=== PATIENT | male | born 1940 | race Caucasian/White ===

== ENCOUNTER 2019-06-29 10:01 | Inpatient (IN) | payer MEDICARE, OTHER ==
[2019-06-27 16:47] LABS: BASOPHILS % (AUTO) 0.6 % (0-1); EOSINOPHILS # (AUTO) 0.2 X10'3 (0-0.9); LYMPHOCYTES % (AUTO) 30.3 % (21-51); MEAN CORPUSCULAR HEMOGLOBIN 28.8 PG (27.0-31.0); MEAN CORPUSCULAR HGB CONC 33.6 g/dL (33.0-36.5); MEAN CORPUSCULAR VOLUME 85.9 FL (78-98); MEAN PLATELET VOLUME 8.6 FL (7.4-10.4); MONOCYTES # (AUTO) 0.4 X10'3 (0-0.9); MONOCYTES % (AUTO) 5.6 % (2-12); NEUTROPHILS # (AUTO) 3.9 X10'3 (1.8-7.7); NEUTROPHILS % (AUTO) 60.5 % (42-75); PRE OP HEMATOCRIT 41.5 % (42.0-52.0); PRE OP HEMOGLOBIN 13.9 g/dL (14.0-17.9); PRE OP PLATELET COUNT 182 X10'3 (140-440); RED BLOOD COUNT 4.83 X10'6 (4.70-6.10); RED CELL DISTRIBUTION WIDTH 15.3 % (11.5-14.5)
[2019-06-27 16:59] LABS: PRE OP PROTIME 10.7 SECONDS (9.0-12.0)
[2019-06-27 17:05] LABS: ALBUMIN 3.7 G/DL (3.4-5.0); ALKALINE PHOSPHATASE 75 IU/L (46-116); BLOOD UREA NITROGEN 11 MG/DL (7-18); BUN/CREATININE RATIO 14.1 (5.4-32.0); CALCIUM 9.8 MG/DL (8.5-10.1); CHLORIDE 104 MMOL/L (99-107); CREATININE 0.78 MG/DL (0.60-1.10); PRE OP ALT 25 U/L (30-65); PRE OP ANION GAP 10 (8-16); PRE OP AST 20 U/L (10-37); PRE OP BILIRUB, TOTAL 0.5 MG/DL (0.0-1.0); PRE OP GLUCOSE 105 MG/DL (70-104); PRE OP SODIUM 139 MMOL/L (135-145); TOTAL CARBON DIOXIDE 24.9 MMOL/L (24-32); TOTAL PROTEIN 7.3 G/DL (6.4-8.2); eGFR > 90 ML/MIN
[2019-06-27 17:06] LABS: HEMOGLOBIN A1C 7.2 % (4.5-6.2)
[~2019-06-29] VITALS: Ht 175.3 cm; Wt 110.5 kg
[2019-06-29] VITALS (18 sets, daily range): BP systolic 105–160; BP diastolic 47–79
[~2019-06-29 10:01] MED LIST: APIX5TAB3 PO; CHOL100046 PO; ENZA40CA PO; LOSA50TA64 PO; ROSU20TA31 PO; SITA100T11 PO; cefazolin/dext.iso 2gm/100ml 100 ML IV ONE; famotidine 20mg tablet PO ONE
[2019-06-29] MEDS ORDERED: DILT120C10 PO (10:44)
[2019-06-29] MEDS: ringers solution, lacted 1,000 ML IV SCH (11:01)
[2019-06-29] MEDS ORDERED: phenylephrine inj 20 MG in normal saline 250ml IV soln 250 ML IV PRN (11:36)
[2019-06-29] MEDS ORDERED: nitroPRUSSIDE in NS 100 ML IV PRN (11:36)
[2019-06-29] MEDS ORDERED: LIDOcaine 1% (10mg/ml) 2ml vial ONE ×2 (12:52→13:45)
[2019-06-29] MEDS ORDERED: sugammadex 200mg/2ml injection IV ONE (13:39)
[2019-06-29] MEDS ORDERED: fentaNYL/PF 50MCG/1 ML 2ML syringe ONE (13:41)
[2019-06-29] MEDS ORDERED: midazolam 2 mg/2 ml injection ONE (13:41)
[2019-06-29] MEDS ORDERED: propofol inj 20 ML IV ONE (13:42)
[2019-06-29] MEDS ORDERED: rocuronium 10mg/ml inj IV ONE (13:42)
[2019-06-29] MEDS ORDERED: heparin 10,000 units/1 ML INJ ONE (13:45)
[2019-06-29] MEDS ORDERED: neostigmine methylsulfate 1 MG/ML 10ml vial ONE (14:01)
[2019-06-29] MEDS ORDERED: sevoflurane 250ml liquid IH ONE (14:01)
[2019-06-29] MEDS ORDERED: ondansetron/PF 4mg/2ml inj IV PRN ×2 (14:15→15:00)
[2019-06-29] MEDS ORDERED: ePHEDrine 50MG/ML INJ. ONE (14:25)
[2019-06-29] MEDS ORDERED: heparin 1,000unit/ml 10ml vial 10 ML ONE (14:28)
[2019-06-29] MEDS ORDERED: morphine 4 MG/ML inj SYRINge IV PRN ×2 (15:00)
[2019-06-29] MEDS ORDERED: meperidine/PF 25mg/ml syringe IV PRN ×3 (15:00)
[2019-06-29] MEDS ORDERED: proCHLORperazine 10 MG/2 ml inj IV PRN (15:00)
[2019-06-29] MEDS ORDERED: ringers solution, lacted 1,000 ML IV SCH (15:00)
[2019-06-29] MEDS ORDERED: metoprolol tartrate 1mg/ml inj IV ONE (15:23)
--- NOTE | 2019-06-29 15:48 | NUR ---
Received from OR via ICU BED , accompanied by Anesthesiologist EDWINA and report given by Anesthesiolgist. PATIENT WITH 10L MASK ON WITH 98% SATURATIONS. RIGHT NECK DRESSING IS CDI. PIA PRESENT AND MAINTAINING SUCTION. PATIENT WITH ART LINE IN RIGHT UE AND 18G PIV IN RIGHT AC. PATIENT WITH VSS AT THIS TIME.
--- NOTE | 2019-06-29 16:38 | NUR ---
ALL CRITERIA FOR TRANSFER TO THE FLOOR HAS BEEN ACHIEVED. VSS. BED LOW, CALL LIGHT AND VS. SET IN PLACE. RN PRESENT TO ACCEPT CARE. PATIENT RESTING COMFORTABLY IN BED. BELONGINGS SENT WITH PATIENT. DRESSINGS CDI. RNS PRESENT TO ACCEPT CARE AND ASSIST IN SET UP OF PATIENT. Addendum: 06/29/19 at 1648 by Piero Gilbert RN RN Amended: Links added.
--- NOTE | 2019-06-29 17:03 | NUR ---
Patient in room CICU 2012. I have received report from cage unloader and had the opportunity to ask questions and assume patient care.
--- NOTE | 2019-06-29 17:03 | NUR ---
pt in room 2013, turned and extra blankets and bug hugger removed, dressing placed on bottom.
--- NOTE | 2019-06-29 18:24 | NUR ---
Problems reprioritized. Patient report given, questions answered & plan of care reviewed with [].
--- NOTE | 2019-06-29 18:37 | NUR ---
assumed care from ZION STRICKLAND NO QUESTIONS OR CONCERNS AFTER ASSUMING CARE
[2019-06-29] MEDS: apixaban 5mg tablet PO SCH (20:00)
[2019-06-29] MEDS ORDERED: linagliptin 5mg tablet PO SCH (21:00)
--- NOTE | 2019-06-29 22:19 | NUR ---
PATIENT IN BED COVERS ON EYES OPEN WATCHING TELEVISION RR EVEN UN LABORED PATIENT HAS HAD ASYMPTOMATIC BRADYCARDIA FOR ME THIS SHIFT, NO OBSERVABLE S/S OF ACUTE STRESS AT THIS TIME WILL CONTINUE TO MONITOR
[2019-06-30] VITALS (12 sets, daily range): BP systolic 101–143; BP diastolic 38–67
--- NOTE | 2019-06-30 01:22 | NUR ---
PATIENT IN BED EYES CLOSED RR EVEN UN LABORED NO OBSERVABLE S/S OF ACUTE STRESS AT THIS TIME WILL CONTINUE TO MONITOR
--- NOTE | 2019-06-30 04:05 | NUR ---
PATIENT USED CALL LIGHT FOR HELP WITH THE URINAL AFTER FINISHING URINATING IN URINAL PATIENT ASKED AND RECEIVED NEW WARM BLANKETS AND AT THIS TIME PATIENT IS ON SIDE EYES CLOSED COVERS ON RR EVEN UN LABORED NO OBSERVABLE S/S OF ACUTE STRESS AT THIS TIME WILL CONTINUE TO MONITOR
[2019-06-30 05:11] LABS: BASOPHILS % (AUTO) 0.5 % (0-1); EOSINOPHILS # (AUTO) 0.1 X10'3 (0-0.9); EOSINOPHILS % (AUTO) 1.5 % (0-6); HEMATOCRIT 36.5 % (42.0-52.0); HEMOGLOBIN 12.5 g/dl (14.0-17.9); LYMPHOCYTES # (AUTO) 1.1 X10'3 (1.1-4.8); LYMPHOCYTES % (AUTO) 18.1 % (21-51); MEAN CORPUSCULAR HEMOGLOBIN 29.4 PG (27.0-31.0); MEAN CORPUSCULAR HGB CONC 34.2 g/dL (33.0-36.5); MEAN PLATELET VOLUME 8.4 FL (7.4-10.4); MONOCYTES # (AUTO) 0.4 X10'3 (0-0.9); MONOCYTES % (AUTO) 5.9 % (2-12); NEUTROPHILS # (AUTO) 4.6 X10'3 (1.8-7.7); PLATELET COUNT 141 X10'3 (140-440); RED BLOOD COUNT 4.24 X10'6 (4.70-6.10); RED CELL DISTRIBUTION WIDTH 14.9 % (11.5-14.5); WHITE BLOOD COUNT 6.2 X10'3 (4.5-11.0)
[2019-06-30 05:17] LABS: ALANINE AMINOTRANSFERASE 21 U/L (12-78); ALBUMIN 2.9 G/DL (3.4-5.0); ALBUMIN/GLOBULIN RATIO 0.9 (1.1-1.5); ALKALINE PHOSPHATASE 55 IU/L (46-116); ANION GAP 8 (8-16); ASPARTATE AMINO TRANSFERASE 17 U/L (10-37); BILIRUBIN,TOTAL 0.5 MG/DL (0.1-1.0); BLOOD UREA NITROGEN 9 MG/DL (7-18); BUN/CREATININE RATIO 11.8 (5.4-32.0); CALCIUM 8.8 MG/DL (8.5-10.1); CHLORIDE 105 MMOL/L (99-107); CREATININE 0.76 MG/DL (0.60-1.10); GLUCOSE 135 MG/DL (70-104); MAGNESIUM 1.8 MG/DL (1.5-2.4); PHOSPHORUS 3.5 MG/DL (2.3-4.5); POTASSIUM 3.8 MMOL/L (3.5-5.1); SODIUM 141 MMOL/L (135-145); TOTAL CARBON DIOXIDE 27.9 MMOL/L (24-32); eGFR > 90 ML/MIN
--- NOTE | 2019-06-30 06:10 | NUR ---
SBAR TO JOVAN STRICKLAND NO QUESTIONS OR CONCERNS AFTER ASSUMING CARE
--- NOTE | 2019-06-30 06:17 | NUR ---
Patient in room CICU 2013. I have received report from EM Gutiérrez and had the opportunity to ask questions and assume patient care.
[2019-06-30] MEDS ORDERED: vitamin D (cholecalciferol) 1,000 unit tablet PO SCH (08:00)
[2019-06-30] MEDS ORDERED: atorvastatin 20mg tablet PO SCH (08:00)
[2019-06-30] MEDS ORDERED: ENZALUTAMIDE 120 MG PO SCH ×2 (08:00→15:30)
[2019-06-30] MEDS ORDERED: diltiazem CD 120mg capsule (once-daily) PO SCH ×2 (08:00→18:00)
[2019-06-30] MEDS ORDERED: losartan 50mg tablet PO SCH (08:00)
[2019-06-30] MEDS: apixaban 5mg tablet PO SCH (09:01)
[2019-06-30] MEDS: ringers solution, lacted 1,000 ML IV SCH (09:03)
--- NOTE | 2019-06-30 12:22 | NUR ---
Discharged. PIV and arterial line taken out. PIA drain taken out. We brought patient back his home meds from the pharmacy. Stable for DC per MD. Took all belongings and papers signed.
== END 2019-06-30 12:15 | disposition home or self-care (01) | DRG 39 ==
LOC: PAS 10:01 → EDSTATUS 13:30 → CICU 2S 17:00
PROVIDERS: ADMIT Surgery; ATTEND Surgery
PROC: 03UK0KZ Supplement Right Internal Carotid Artery with Nonautologous Tissue Substitute, Open Approach (ICD-10-PCS; 2019-06-29)
PROC: 03CK0ZZ Extirpation of Matter from Right Internal Carotid Artery, Open Approach (ICD-10-PCS; principal; 2019-06-29 14:01)
DX: I65.21 Occlusion and stenosis of right carotid artery (principal); G47.30 Sleep apnea, unspecified; I10 Essential (primary) hypertension; E11.9 Type 2 diabetes mellitus without complications; E78.5 Hyperlipidemia, unspecified; I48.91 Unspecified atrial fibrillation
CPT/HCPCS: 36415; 80053; 82948; 83036; 83735; 84100; 85025; 85610; 85730; 86885; 86900; 86901; 87081; 95813; 95816; A4618; A6258; A7000; C1768; C9399; G0378; J1644; J2001; J2175; J2250; J2370; J2704; J2710; J3010; J3490; J7040; J7050; J7120